=== PATIENT | female | born 1975 | race American Indian/Alaskan Native ===

== ENCOUNTER 2020-12-03 10:58 | Outpatient (CLI) | payer OTHER ==
--- NOTE | 2020-12-03 12:04 | XRay Report ---
CHEST 2 VIEWS INDICATION: BACK PAIN. COMPARISON: None FINDINGS: Support devices: None. Heart: Within normal limits. The trachea is displaced to the right of midline probably secondary to a n enlarged thyroid gland or substernal goiter. Lungs/pleura: No acute air space or interstitial disease. No pneumothorax. Additional findings: Minimal thoracic spondylosis. IMPRESSION: No acute findings. Tracheal deviation to the right probably represents thyroid enlargement. Minimal t horacic spondylosis is identified. LUMBOSACRAL SPINE 3 VIEWS INDICATION: BACK PAIN. COMPARISON: None. IMPRESSION: Normal alignment. Mild disc space narrowing is identified at L5-S1. The remaining disc levels are unremarkable. There is mild diffuse facet arthropathy which is most pronounced at L4-5. Th e SI joints are unremarkable. No acute osseous or soft tissue abnormality. Signer Name: Evan Mcclure Jr, MD Signed: 12/03/2020 11:59 AM Workstation Name: [id number]
== END 2020-12-03 10:59 | disposition home or self-care (01) ==
LOC: XRAY 10:58
PROVIDERS: ATTEND Internal Medicine
DX: M47.817 Spondylosis without myelopathy or radiculopathy, lumbosacral region (principal); M48.07 Spinal stenosis, lumbosacral region
CPT/HCPCS: 71046; 72100